=== PATIENT | female | born 1940 | race Two or more races ===

== ENCOUNTER → 2018-09-28 | Outpatient (CLI) | payer OTHER | END | disposition home or self-care (01) | LOC: RAD 501 15:14 | DX: R91.1 Solitary pulmonary nodule (principal) ==

== ENCOUNTER 2018-10-06 10:10 | Outpatient (CLI) | payer OTHER | END 2018-10-06 10:16 | disposition home or self-care (01) | LOC: RAD 501 10:10 | DX: M17.11 Unilateral primary osteoarthritis, right knee (principal) ==

== ENCOUNTER 2019-10-21 06:33 | Outpatient (CLI) | payer OTHER | END 2019-10-21 07:09 | disposition home or self-care (01) | LOC: LAB 06:33 | DX: I10 Essential (primary) hypertension (principal); Z13.0 Encounter for screening for diseases of the blood and blood-forming organs and certain disorders involving the immune mechanism; E55.9 Vitamin D deficiency, unspecified; E78.00 Pure hypercholesterolemia, unspecified; Z13.29 Encounter for screening for other suspected endocrine disorder ==

== ENCOUNTER 2019-11-22 07:45 | Outpatient (CLI) | payer OTHER | END 2019-11-22 07:47 | disposition home or self-care (01) | LOC: TOM 07:45 | PROVIDERS: ATTEND Internal Medicine Gastroenterology | DX: R63.4 Abnormal weight loss (principal); R63.8 Other symptoms and signs concerning food and fluid intake; R10.31 Right lower quadrant pain; R10.33 Periumbilical pain | CPT/HCPCS: 71250; 72196; 74182; A9575; 72197; 74185 ==